=== PATIENT | female | born 2000 | race Caucasian/White ===

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

== ENCOUNTER 2020-01-12 00:11 | Outpatient (CLI) | payer OTHER, MEDICAID ==
[2020-01-12 00:39] LABS: APPEARANCE,URINE SLIGHTLY-CLOUDY; BILIRUBIN,URINE NEGATIVE (NEGATIVE); COLOR,URINE YELLOW; GLUCOSE, URINE NEGATIVE (NEGATIVE); KETONES,URINE NEGATIVE (NEGATIVE); LEUKOCYTE ESTERASE,URINE MODERATE (NEGATIVE); NITRITE,URINE NEGATIVE (NEGATIVE); PROTEIN,URINE 30 mg/dL (NEGATIVE); URINE SPECIFIC GRAVITY 1.023; UROBILINOGEN,URINE NEGATIVE mg/dL (<2.0)
[2020-01-12] MEDS ORDERED: HYDROXYZINE PAMOATE 50 MG CAPSULE PO ONE (00:50)
[2020-01-12 00:55] LABS: URINE AMPHETAMINES SCREEN NEGATIVE; URINE BARBITURATES SCREEN NEGATIVE; URINE BENZODIAZEPINES SCREEN NEGATIVE; URINE COCAINE SCREEN NEGATIVE; URINE MARIJUANA (THC) SCREEN NEGATIVE; URINE METHADONE SCREEN NEGATIVE; URINE PHENCYCLIDINE SCREEN NEGATIVE
[2020-01-12] MEDS ORDERED: HYDROXYZINE PAMOATE 50 MG CAPSULE ONE (01:02)
--- NOTE | 2020-01-12 01:57 | Non Stress Test Report ---
Non Stress Test Datetime Report Generated by CPN: 01/12/2020 01:57 DEMOGRAPHIC EGA NST: 34.4 INDICATION Indication for Study (NST) Other: labor check URINE RESULTS Urine Protein, NST: Positive Urine Ketones - NST: Negative Urine Glucose - NST: Negative Urine Blood - NST: Negative MONITORING Monitor Explained: Monitor Explained; Test Explained; Patient Verbalized Understanding Time on Monitor: 01/12/2020 00:27 Time off Monitor: 01/12/2020 01:11 NST Duration: 44 NST INTERVENTIONS NST Interventions: PO Hydration Physician Notified NST: [place] BABY A: [id number] BABY A Movement : Present Contraction Frequency : 2-4 FHR Baseline : 145 Accelerations : 15X15 Decelerations : None Variability : Moderate 6-25bpm NST Review: Meets Criteria for Reactive NST NST Review and Verified By : Tasha Mckenzie RN NST Results: Reactive NST REPORT Report Trigger: Send Report
== END 2020-01-12 01:39 | disposition home or self-care (01) ==
LOC: LC 00:11
PROVIDERS: ATTEND Obstetrics & Gynecology
DX: O47.03 False labor before 37 completed weeks of gestation, third trimester (principal); Z3A.34 34 weeks gestation of pregnancy
CPT/HCPCS: 59025; 80307; 81001

== ENCOUNTER 2020-02-02 22:17 | Emergency (ER) | payer OTHER, MEDICAID ==
[2020-02-02 22:25] VITALS: BP 122/69
[2020-02-02] MEDS ORDERED: NORMAL SALINE 1000 ML 1,000 ML IV ONE (22:37)
[2020-02-02] MEDS ORDERED: ONDANSETRON HCL INJ/PF 4 MG/2 ML SDV IV ONE (22:37)
--- NOTE | 2020-02-02 22:37 | ER Document Report ---
ED Medical Screen (RME) - General Chief Complaint: Nausea/Vomiting/Diarrhea Stated Complaint: VOMITTING 37 WKS PREG Time Seen by Provider: 02/02/20 22:28 Primary Care Provider: MIKY LIZAMA MD [Primary Care Provider] - Follow up as needed Mode of Arrival: Ambulatory Information source: Patient Notes: 19-year-old female presented to ED for hyperemesis gravidarum with diarrhea. She states she is having abdominal cramping that she has been having since 34 weeks. She states she was seen on Monday and was told she was 1 cm dilated and 75% effaced. She states she is having a vaginal mucousy discharge. She states she is also having diarrhea. She states she is vomited 4 times today and cannot keep fluids down. She [facility] to come to the emergency room. She is 37 weeks 5 days 1 para 0. She is alert oriented respirations regular nonlabored speaking in full sentences. I have greeted and performed a rapid initial assessment of this patient. A comprehensive ED assessment and evaluation of the patient, analysis of test results and completion of medical decision making process will be conducted by an additional ED providers. TRAVEL OUTSIDE OF THE [place] IN LAST 30 DAYS: No - Related Data Allergies/Adverse Reactions: metoclopramide [From Reglan] Allergy (Verified 08/29/19 19:42) Past Medical History - Social History Chew tobacco use (# tins/day): No Frequency of alcohol use: None Drug Abuse: None Pulmonary Medical History: Reports: Hx Asthma Musculoskeltal Medical History: Reports Hx Musculoskeletal Trauma Psychiatric Medical History: Denies: Hx Depression Traumatic Medical History: Reports: Hx Fractures - Middle finger right Past Surgical History: Reports: Hx Abdominal Surgery - Pyloric stenosis - Immunizations Immunizations up to date: Yes Hx Diphtheria, Pertussis, Tetanus Vaccination: Yes Physical Exam - Vital signs Vitals: Temp Pulse Resp BP Pulse Ox 98.7 F 72 13 122/69 100 02/02/20 22:24 02/02/20 22:24 02/02/20 22:24 02/02/20 22:24 02/02/20 22:24 Course - Vital Signs Vital signs: Temp Pulse Resp BP Pulse Ox 98.7 F 72 13 122/69 100 02/02/20 22:32 02/02/20 22:24 02/02/20 22:24 02/02/20 22:24 02/02/20 22:24 Doctor's Discharge - Discharge Referrals: MIKY LIZAMA MD [Primary Care Provider] - Follow up as needed
[2020-02-02 23:00] LABS: ABSOLUTE MONOCYTES (AUTO) 0.5 10^3/uL (0.1-1.4); ABSOLUTE NEUT (AUTO) 5.8 10^3/uL (1.7-8.2); BASOPHILS % (AUTO) 0.5 % (0-2); EOSINOPHILS % (AUTO) 0.5 % (0-6); HEMATOCRIT 34.2 % (36.0-47.0); MEAN CORPUSCULAR HEMOGLOBIN 30.1 pg (27.0-33.4); MEAN CORPUSCULAR VOLUME 86 fl (80-97); MONOCYTES % (AUTO) 6.3 % (3-13); PLATELET COUNT 280 10^3/uL (150-450); RED BLOOD COUNT 3.98 10^6/uL (3.72-5.28); RED CELL DISTRIBUTION WIDTH 12.7 % (11.5-14.0); SEGMENTED NEUTROPHILS % (AUTO) 68.7 % (42-78); TOTAL CELLS COUNTED % (AUTO) 100 %; WHITE BLOOD COUNT 8.5 10^3/uL (4.0-10.5)
[2020-02-02 23:14] LABS: ALBUMIN 4.1 g/dL (3.7-5.6); ALKALINE PHOSPHATASE 211 U/L (50-135); ANION GAP 8 (5-19); ASPARTATE AMINO TRANSFERASE 24 U/L (5-30); BILIRUBIN,TOTAL 0.5 mg/dL (0.2-1.3); BLOOD UREA NITROGEN 4 mg/dL (7-20); CALCIUM 9.4 mg/dL (8.4-10.2); CARBON DIOXIDE 26 mmol/L (22-30); CHLORIDE 100 mmol/L (98-107); GLUCOSE 99 mg/dL (75-110); POTASSIUM 3.5 mmol/L (3.6-5.0); TOTAL PROTEIN 7.1 g/dL (6.3-8.2)
[2020-02-02 23:19] LABS: APPEARANCE,URINE SLIGHTLY-CLOUDY; BILIRUBIN,URINE NEGATIVE (NEGATIVE); COLOR,URINE YELLOW; GLUCOSE, URINE NEGATIVE (NEGATIVE); KETONES,URINE NEGATIVE (NEGATIVE); LEUKOCYTE ESTERASE,URINE SMALL (NEGATIVE); NITRITE,URINE NEGATIVE (NEGATIVE); PROTEIN,URINE 30 mg/dL (NEGATIVE); URINE SPECIFIC GRAVITY 1.023
--- NOTE | 2020-02-02 23:19 | ER Document Report ---
Entered by MARGARET MIRANDA SCRIBE 02/02/20 [id number] Acting as scribe for:ISABEL CALLOWAY IV, MD ED GI/ - General Chief Complaint: Nausea/Vomiting/Diarrhea Stated Complaint: VOMITTING 37 WKS PREG Time Seen by Provider: 02/02/20 22:28 Primary Care Provider: MIKY LIZAMA MD [ACTIVE PROVISIONAL STAFF] - Follow up as needed Mode of Arrival: Ambulatory Information source: Patient Notes: This 19 year old female patient, , currently x37 weeks and 5 days gestation with hyperemesis gravidarum presents to the ED today with complaints of chace sea/vomiting/diarrhea for the past x2 days. Patient notes that she has been "constantly nauseous" throughout the , "like I'm on a boat." She reports that she has tried anti-nausea suppositories, oral dissolving tablets, and luis without resolve. She also reports abdominal cramping for the past x3 weeks. She states that she called the nurse's line at [facility] and was told to come to the ED for evaluation. She notes that her next [employer] appointment is on 02/06/2020. Denies vaginal bleeding or sick contacts. TRAVEL OUTSIDE OF THE [place] IN LAST 30 DAYS: No - Related Data Allergies/Adverse Reactions: diphenhydramine [From Benadryl] Allergy (Verified 02/02/20 23:00) metoclopramide [From Reglan] Allergy (Verified 08/29/19 19:42) Past Medical History - General Information source: Patient - Social History Smoking Status: Never Smoker Cigarette use (# per day): No Chew tobacco use (# tins/day): No Smoking Education Provided: No Frequency of alcohol use: None Drug Abuse: None Lives with: Family Family History: Reviewed & Not Pertinent Patient has suicidal ideation: No Patient has homicidal ideation: No Pulmonary Medical History: Reports: Hx Asthma Musculoskeletal Medical History: Reports Hx Musculoskeletal Trauma Traumatic Medical History: Reports: Hx Fractures - Middle finger right Past Surgical History: Reports: Hx Abdominal Surgery - Pyloric stenosis - Immunizations Immunizations up to date: Yes Hx Diphtheria, Pertussis, Tetanus Vaccination: Yes Review of Systems - Review of Systems Constitutional: No symptoms reported EENT: No symptoms reported Cardiovascular: No symptoms reported Respiratory: No symptoms reported Gastrointestinal: See HPI, Abdominal pain - cramping, Diarrhea, Nausea, Vomiting Genitourinary: No symptoms reported Female Genitourinary: See HPI, - 37 weeks and 5 days. denies: Vaginal bleeding Musculoskeletal: No symptoms reported Skin: No symptoms reported Hematologic/Lymphatic: No symptoms reported Neurological/Psychological: No symptoms reported -: Yes All other systems reviewed and negative Physical Exam - Vital signs Vitals: Temp Pulse Resp BP Pulse Ox 98.7 F 72 13 122/69 100 02/02/20 22:24 02/02/20 22:24 02/02/20 22:24 02/02/20 22:24 02/02/20 22:24 Interpretation: Normal - General General appearance: Alert In distress: None - HEENT Head: Normocephalic, Atraumatic Eyes: Normal Pupils: PERRL - Respiratory Respiratory status: No respiratory distress Chest status: Nontender Breath sounds: Normal Chest palpation: Normal - Cardiovascular Rhythm: Regular Heart sounds: Normal auscultation Murmur: No Friction rub: No Gallop: None auscultated - Abdominal Inspection: Gravid female, Other - Uterine size is appropriate for gestation Bowel sounds: Normal Tenderness: Nontender - Abdomen soft Organomegaly: No organomegaly - Back Back: Normal, Nontender - Extremities General upper extremity: Normal inspection General lower extremity: Normal inspection - Neurological Neuro grossly intact: Yes Orientation: AAOx4 - Psychological Associated symptoms: Normal affect, Normal mood - Skin Skin Temperature: Warm Skin Moisture: Dry Skin Color: Normal Course - Re-evaluation Re-evalutation: 02/03/20 00:01 Results of ED MSE discussed with patient. All questions were answered prior to discharge. Emergency signs and symptoms, reasons to return to the emergency department discussed with patient. - Vital Signs Vital signs: Temp Pulse Resp BP Pulse Ox 98.7 F 72 13 122/69 100 02/02/20 22:32 02/02/20 22:24 02/02/20 22:24 02/02/20 22:24 02/02/20 22:24 - Laboratory Result Diagrams: 02/02/20 22:45 02/02/20 22:45 Laboratory results interpreted by me: 02/02/20 02/02/20 02/02/20 22:45 22:45 22:45 Hct 34.2 L Sodium 133.9 L Potassium 3.5 L BUN 4 L Creatinine 0.46 L Alkaline Phosphatase 211 H Urine Protein 30 H Urine Urobilinogen 2.0 H Ur Leukocyte Esterase SMALL H Discharge - Discharge Clinical Impression: Hypokalemia Nausea and vomiting Qualifiers: Vomiting type: unspecified Vomiting Intractability: unspecified Qualified Code(s): R11.2 - Nausea with vomiting, unspecified Diarrhea Qualifiers: Diarrhea type: unspecified type Qualified Code(s): R19.7 - Diarrhea, un specified UTI (urinary tract infection) Qualifiers: Urinary tract infection type: site unspecified Hematuria presence: without hematuria Qualified Code(s): N39.0 - Urinary tract infection, site not specified Condition: Good Disposition: HOME, SELF-CARE Instructions: Urinary Tract Infection ([facility]) Additional Instructions: Return to the Emergency Department without delay if any worse. HOME CARE INSTRUCTIONS & INFORMATION: Thank you for choosing us for your medical needs. We hope you're satisfied with the care you received. After you leave, you must properly care for your problem and, at the same time, observe its progress. Any condition can change. Some illnesses can change rapidly over hours or days. If your condition worsens, return to the Emergency Department or see your physician promptly. ABOUT YOUR X-RAYS AND EKG'S: If you had an EKG or X-rays taken, they have been read by the Emergency Physician. The X-rays and EKG's will also be read by a Radiologist or Measurer within 24 hours. If discrepancies are noted, you will be notified by telephone. Please be certain the ED has a correct telephone number & address where you can be reached. Also, realize that some fractures or abnormalities do not show up on initial X-rays. If your symptoms continue, see your physician. ABOUT YOUR LABORATORY TEST: If you had laboratory tests, the results have been reviewed by the Emergency Physician. Some test results (for example cultures) may not be available for several days. You will be contacted if any test result shows you need additional treatment. Please be certain the ED has a correct telephone number and address where you can be reached. ABOUT YOUR MEDICATIONS: You will receive instructions on how to take your medicine on the prescription label you receive. Additional information may be provided by the Pharmacy. If you have questions afterwards, call the ED for clarification or further instructions. Some prescribed medications may cause drowsiness. Do not perform tasks such as driving a car or operating machinery without consulting your Pharmacist. If you feel you need a refill of pain medication, your condition will need re-evaluation. Please do not call for a refill of any medication. ABOUT YOUR SIGNATURE: Signature of this document acknowledges to followin. Understanding that you received emergency treatment and that you may be released before al medical problems are known or treated. Please be certain the ED has a correct phone number & address where you can be reached. 2. Acknowledgement that you will arrange for follow-up care as recommended. 3. Authorization for the Emergency Physician to provide information to your follow-up Physician in order to maximize your care. AT ANY TIME, IF YOUR SYMPTOMS CHANGE SIGNIFICANTLY OR WORSEN OR YOU DEVELOP NEW SYMPTOMS, RETURN TO THE EMERGENCY DEPARTMENT IMMEDIATELY FOR RE-EVALUATION. OUR GOAL IS TO PROVIDE EXCELLENT MEDICAL CARE! WE HOPE THAT WE HAVE MET YOUR EXPECTATIONS DURING YOUR EMERGENCY DEPARTMENT VISIT AND THAT YOU FEEL YOU HAVE RECEIVED EXCELLENT CARE! Hypokalemia You have an abnormally decreased level of serum potassium. Hypokalemia may cause weakness, fatigue, or heart rhythm abnormalities. Sometimes there are no symptoms at all. Usually, low serum potassium is due to taking diuretics (water pills). It can also be due to excessive vomiting or diarrhea. If no obvious cause is evident, further evaluation will be necessary. Treatment is usually oral potassium supplements. Take these exactly as prescribed. You may also want to select foods which are naturally high in potassium -- fruits (such as bananas, cantaloupe, grapes, oranges, prunes, tomatoes), fresh vegetables (potatoes, spinach, beans, peas), orange or tomato juice, tomato pasta sauce, milk, fish (halibut, tuna, salmon, molly) A follow-up blood test is usually performed to assure that the potassium is returning to normal. Call the physician if you suffer severe weakness, muscle twitching or cramping, palpitations (pounding or irregular heartbeat), or any other new or alarming symptoms. Prescriptions: Nitrofurantoin Monohyd/M-Cryst [Macrobid 100 mg Capsule] 100 mg PO BID 7 Days #14 cap Referrals: MIKY LIZAMA MD [ACTIVE PROVISIONAL STAFF] - 02/03/20 I personally performed the services described in the documentation, reviewed and edited the documentation which was dictated to the scribe in my presence, and it accurately records my words and actions.
[2020-02-03] MEDS ORDERED: NITROFURANTOIN MONOHYD/M-CRYST 100 MG CAPSULE PO ONE (00:05)
== END 2020-02-03 00:26 | disposition home or self-care (01) ==
LOC: ER 22:17
DX: O21.1 Hyperemesis gravidarum with metabolic disturbance (principal); O23.43 Unspecified infection of urinary tract in pregnancy, third trimester; R19.7 Diarrhea, unspecified; Z3A.37 37 weeks gestation of pregnancy
CPT/HCPCS: 36415; 85025; 80053; 81001; J2405; J7030; J8499; 96361; 96374; 99284

== ENCOUNTER 2020-02-03 11:46 | Outpatient (CLI) | payer OTHER, MEDICAID ==
[2020-02-03] MEDS ORDERED: PANTOPRAZOLE SODIUM 40 MG VIAL IV ONE (12:26)
[2020-02-03] MEDS ORDERED: ONDANSETRON HCL INJ/PF 4 MG/2 ML SDV IV ONE (12:27)
[2020-02-03] MEDS ORDERED: PROMETHAZINE HCL 25 MG SUPP.RECT PR ONE (12:27)
[2020-02-03] MEDS: DEXTROSE 5%-LACTATED RINGERS 1,000 ML IV PRN ×2 (12:43→13:32)
[2020-02-03] MEDS ORDERED: ONDANSETRON HCL INJ/PF 4 MG/2 ML SDV ONE (12:48)
[2020-02-03 13:27] LABS: ALKALINE PHOSPHATASE 171 U/L (50-135); ANION GAP 5 (5-19); ASPARTATE AMINO TRANSFERASE 19 U/L (5-30); BILIRUBIN,TOTAL 0.4 mg/dL (0.2-1.3); BLOOD UREA NITROGEN 2 mg/dL (7-20); CALCIUM 8.3 mg/dL (8.4-10.2); CARBON DIOXIDE 23 mmol/L (22-30); CHLORIDE 104 mmol/L (98-107); GLUCOSE 168 mg/dL (75-110); POTASSIUM 3.4 mmol/L (3.6-5.0); TOTAL PROTEIN 5.5 g/dL (6.3-8.2)
[2020-02-03 13:32] LABS: AMYLASE < 30 U/L (30-110)
[2020-02-03] MEDS ORDERED: ALBUTEROL SULFATE 0.042% NEB (1.25 MG/3 ML) AMPUL NEB ONE (14:20)
[2020-02-03] MEDS ORDERED: POTASSI CL 20 MEQ/50 ML RIDER 20 MEQ/50 ML RTUPB IV ONE (14:23)
[2020-02-03 14:36] LABS: URINE AMPHETAMINES SCREEN NEGATIVE; URINE BARBITURATES SCREEN NEGATIVE; URINE BENZODIAZEPINES SCREEN NEGATIVE; URINE COCAINE SCREEN NEGATIVE; URINE MARIJUANA (THC) SCREEN NEGATIVE; URINE METHADONE SCREEN NEGATIVE; URINE PHENCYCLIDINE SCREEN NEGATIVE
== END 2020-02-03 17:58 | disposition home or self-care (01) ==
LOC: LC 11:46
PROVIDERS: ATTEND Obstetrics & Gynecology
DX: O21.1 Hyperemesis gravidarum with metabolic disturbance (principal); E86.0 Dehydration; Z3A.37 37 weeks gestation of pregnancy
CPT/HCPCS: 36415; 82150; 83690; 84443; 80053; 80307; 59025; C9113; J2405; J3480

== ENCOUNTER 2020-02-10 04:43 | Outpatient (CLI) | payer OTHER, MEDICAID ==
--- NOTE | 2020-02-10 04:48 | Non Stress Test Report ---
Non Stress Test Datetime Report Generated by CPN: 02/10/2020 04:48 DEMOGRAPHIC EGA NST: 37.5 INDICATION Indication for Study (NST) Other: dehydration at 37.5 MONITORING Monitor Explained: Monitor Explained; Test Explained; Patient Verbalized Understanding Time on Monitor: 02/03/2020 15:30 Time off Monitor: 02/03/2020 15:59 NST Duration: 29 NST INTERVENTIONS NST Interventions: None Physician Notified NST: Dr Hudson BABY A: [id number] BABY A Movement : Present Contraction Frequency : x1 FHR Baseline : 130 Accelerations : 15X15 Decelerations : None Variability : Moderate 6-25bpm NST Review: Meets Criteria for Reactive NST NST Review and Verified By : LINDSAY JETER, RN NST Results: Reactive NST REPORT Report Trigger: Send Report
[2020-02-10 05:20] LABS: APPEARANCE,URINE SLIGHTLY-CLOUDY; BILIRUBIN,URINE NEGATIVE (NEGATIVE); COLOR,URINE YELLOW; GLUCOSE, URINE NEGATIVE (NEGATIVE); KETONES,URINE NEGATIVE (NEGATIVE); LEUKOCYTE ESTERASE,URINE LARGE (NEGATIVE); NITRITE,URINE NEGATIVE (NEGATIVE); PROTEIN,URINE 30 mg/dL (NEGATIVE); URINE SPECIFIC GRAVITY 1.013; UROBILINOGEN,URINE NEGATIVE mg/dL (<2.0)
[2020-02-10 05:35] LABS: URINE AMPHETAMINES SCREEN NEGATIVE; URINE BARBITURATES SCREEN NEGATIVE; URINE BENZODIAZEPINES SCREEN NEGATIVE; URINE COCAINE SCREEN NEGATIVE; URINE MARIJUANA (THC) SCREEN NEGATIVE; URINE METHADONE SCREEN NEGATIVE; URINE PHENCYCLIDINE SCREEN NEGATIVE
--- NOTE | 2020-02-10 05:49 | Non Stress Test Report ---
Non Stress Test Datetime Report Generated by CPN: 02/10/2020 05:49 DEMOGRAPHIC EGA NST: 38.5 INDICATION Indication for Study (NST) Other: lc MONITORING Monitor Explained: Monitor Explained; Test Explained; Patient Verbalized Understanding Time on Monitor: 02/10/2020 05:01 Time off Monitor: 02/10/2020 05:40 NST Duration: 39 NST INTERVENTIONS NST Interventions: Reposition Patient Physician Notified NST: Dr Mueller BABY A Movement : Present Contraction Frequency : irreg FHR Baseline : 130 Accelerations : 15X15 Decelerations : None Variability : Moderate 6-25bpm NST Review: Meets Criteria for Reactive NST NST Review and Verified By : Joselo, RN NST Results: Reactive NST REPORT Report Trigger: Send Report
== END 2020-02-10 05:51 | disposition home or self-care (01) ==
LOC: LC 04:43
PROVIDERS: ATTEND Obstetrics & Gynecology Gynecology
DX: O47.1 False labor at or after 37 completed weeks of gestation (principal); Z3A.38 38 weeks gestation of pregnancy
CPT/HCPCS: 59025; 80307; 81005; 84112

== ENCOUNTER 2020-02-10 19:40 | Inpatient (IN) | payer OTHER, MEDICAID ==
[2020-02-10] MEDS ORDERED: RINGERS SOLUTION,LACTATED 1,000 ML IV ONE (20:02)
[2020-02-10] MEDS ORDERED: RINGERS SOLUTION,LACTATED 1,000 ML IV PRN (20:02)
[2020-02-10 20:13] LABS: APPEARANCE,URINE TURBID; BILIRUBIN,URINE NEGATIVE (NEGATIVE); COLOR,URINE YELLOW; GLUCOSE, URINE NEGATIVE (NEGATIVE); KETONES,URINE 80 mg/dL (NEGATIVE); LEUKOCYTE ESTERASE,URINE MODERATE (NEGATIVE); NITRITE,URINE NEGATIVE (NEGATIVE); PROTEIN,URINE 100 mg/dL (NEGATIVE); URINE SPECIFIC GRAVITY 1.021; UROBILINOGEN,URINE NEGATIVE mg/dL (<2.0)
[2020-02-10] MEDS ORDERED: MISOPROSTOL 0.2 MG TABLET ONE (20:26)
[2020-02-10] MEDS ORDERED: OXYTOCIN 10 UNIT/ML VIAL ONE (20:26)
[2020-02-10] MEDS ORDERED: LIDOCAINE 1% INJ-PF (10 MG/ML) 30 ML SDV ONE (20:27)
[2020-02-10] MEDS ORDERED: OXYTOCIN/0.9 % SODIUM CHLORIDE 30 UNIT/500 ML RTUINJ ONE (20:27)
[2020-02-10 20:33] LABS: URINE AMPHETAMINES SCREEN NEGATIVE; URINE BARBITURATES SCREEN NEGATIVE; URINE BENZODIAZEPINES SCREEN NEGATIVE; URINE COCAINE SCREEN NEGATIVE; URINE MARIJUANA (THC) SCREEN NEGATIVE; URINE METHADONE SCREEN NEGATIVE; URINE PHENCYCLIDINE SCREEN NEGATIVE
[2020-02-10 20:47] LABS: ABSOLUTE MONOCYTES (AUTO) 0.5 10^3/uL (0.1-1.4); ABSOLUTE NEUT (AUTO) 12.2 10^3/uL (1.7-8.2); BASOPHILS % (AUTO) 0.1 % (0-2); HEMATOCRIT 31.2 % (36.0-47.0); HEMOGLOBIN 10.9 g/dL (12.0-15.5); LYMPHOCYTES % (AUTO) 7.2 % (13-45); MEAN CORPUSCULAR HEMOGLOBIN 29.3 pg (27.0-33.4); MEAN CORPUSCULAR HGB CONC 35.1 g/dL (32.0-36.0); MEAN CORPUSCULAR VOLUME 84 fl (80-97); PLATELET COUNT 266 10^3/uL (150-450); RED BLOOD COUNT 3.73 10^6/uL (3.72-5.28); RED CELL DISTRIBUTION WIDTH 13.3 % (11.5-14.0); SEGMENTED NEUTROPHILS % (AUTO) 88.7 % (42-78); TOTAL CELLS COUNTED % (AUTO) 100 %; WHITE BLOOD COUNT 13.7 10^3/uL (4.0-10.5)
[2020-02-10] MEDS ORDERED: NALBUPHINE HCL INJ 10 MG/1 ML AMPULE INJ ONE (23:40)
[2020-02-10] MEDS ORDERED: PROMETHAZINE HCL INJ 25 MG/1 ML VIAL IV ONE (23:40)
[2020-02-10] MEDS ORDERED: NALBUPHINE HCL INJ 10 MG/1 ML AMPULE ONE (23:43)
[2020-02-10] MEDS ORDERED: PROMETHAZINE HCL INJ 25 MG/1 ML VIAL ONE (23:43)
[2020-02-11] MEDS ORDERED: FENTANYL/BUPIVACAINE/NS/PF 300 MCG/150 ML RTUINJ EPI ONE (01:12)
[2020-02-11] MEDS ORDERED: EPHEDRINE SULFATE INJ 50 MG/1 ML AMPULE ONE (01:12)
[2020-02-11] MEDS ORDERED: BUPIVACAINE HCL 0.25 % INJ/PF (2.5 MG/1 ML) 30 ML VIAL ONE (01:13)
[2020-02-11] MEDS ORDERED: BENZOCAINE/MENTHOL AEROSOL SPRAY 56 ML TOP PRN (04:20)
[2020-02-11] MEDS ORDERED: MAGNESIUM HYDROXIDE SUSP 30 ML UDCUP PO PRN (04:20)
[2020-02-11] MEDS ORDERED: ACETAMINOPHEN 650 MG SUPP.RECT PR PRN (04:20)
[2020-02-11] MEDS ORDERED: MISOPROSTOL 0.2 MG TABLET PR PRN (04:20)
[2020-02-11] MEDS ORDERED: NA PHOS,M-B/NA PHOS,DI-BA (ADULT) 133 ML ENEMA PR PRN (04:20)
[2020-02-11] MEDS ORDERED: ZOLPIDEM TARTRATE 5 MG TABLET PO PRN (04:20)
[2020-02-11] MEDS ORDERED: DIBUCAINE 1% OINTMENT 28 GM TP PRN (04:20)
[2020-02-11] MEDS ORDERED: MEASLES,MUMPS&RUBELLA VACC/PF 0.5 ML VIAL SUBCUT PRN (04:20)
[2020-02-11] MEDS ORDERED: PSEUDOEPHEDRINE HCL 30 MG TABLET PO PRN (04:20)
[2020-02-11] MEDS ORDERED: DIPHENHYDRAMINE HCL 25 MG CAPSULE PO PRN (04:20)
[2020-02-11] MEDS ORDERED: PROMETHAZINE HCL INJ 25 MG/1 ML VIAL IV PRN (04:20)
[2020-02-11] MEDS ORDERED: DIPH/PERTUSS(ACELL)/TETANUS VAC/PF 0.5 ML SYR (>=10YO) IM PRN (04:20)
[2020-02-11] MEDS ORDERED: ACETAMINOPHEN WITH CODEINE #3 TABLET PO PRN ×2 (04:20)
[2020-02-11] MEDS ORDERED: PROMETHAZINE HCL 25 MG SUPP.RECT PR PRN (04:20)
[2020-02-11] MEDS ORDERED: PROMETHAZINE HCL 25 MG TABLET PO PRN (04:20)
[2020-02-11] MEDS ORDERED: GLYCERIN/WITCH HAZEL LEAF 1 EACH MED..WIPE TP PRN (04:20)
[2020-02-11] MEDS ORDERED: OXYTOCIN/0.9 % SODIUM CHLORIDE 30 UNIT/500 ML RTUINJ IV PRN (04:20)
--- NOTE | 2020-02-11 04:30 | Admission Physical ---
Datetime Report Generated by CPN: 02/11/2020 04:29 CURRENT ADMISSION Chief Complaint: Uterine Contractions Chief Complaint Other: Having regular contractions, becoming more painful today. Admit Impression : Term, Intrauterine ; Active Labor; Intact Membranes Admit Plan: Admit to Unit; Initiate Labor Protocol ALLERGIES Medication Allergies: Yes Medication Allergies: metoclopramide (02/03/2020); diphenhydramine (02/03/2020) Latex: No Latex Allergies OBSTETRICAL HISTORY EDC: 02/19/2020 00:00 : 1 Para: 0 Term: 0 : 0 SAB: 0 IAB: 0 Ectopic: 0 Livin (Annotations: Data stored by N on behalf of user) Cesareans: 0 VBACs: 0 Multiple Births: 0 Gestational Diabetes: No Rh Sensitization: No Incompetent Cervix: No SASCHA: No Infertility: No ART Treatment: No Uterine Anomaly: No IUGR: No Hx Previous C/S: No Macrosomia: No Hx Loss/Stillborn: No PIH: No Hx : No Placenta Previa/Abruption: No Depression/PP Depression: No PTL/PROM: No Post Hemorrhage: No Current Procedures: None; Ultrasound; NST SEE RECORDS Alcohol: No Marijuana : No Cocaine: No Other Illicit Drugs: No Cigarettes: Never Smoker. 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 Heart Disease: No Hosp/Surgery: Yes Autoimmune Disorder: No Anesthetic Complications: No Kidney Disease: No Abnormal Pap Smear: No Neuro/Epilepsy: No Psychiatric Disorders: No Other Medical Diseases: No Hepatitis/Liver Disease: No Significant Family History: No Varicosities/Phlebitis: No Trauma/Violence : No Thyroid Dysfunction: No Medical History Comments: pyloric stenosis as an INFECTIOUS HISTORY Gonorrhea: No Genital Herpes: No Chlamydia: No Tuberculosis: No Syphilis: No Hepatitis: No HIV/AIDS Exposure: No Rash or Viral Illness: No HPV: No PHYSICAL EXAM General: Normal HEENT: Normal Neurologic: Normal Thyroid: Normal Heart: Normal Lungs: Normal Breast: Normal Back: Normal Abdomen: Normal Genitourinary Exam: Normal Extremities: Normal DTRs: Normal Pelvic Type: Adequate Vital Signs: Reviewed VAGINAL EXAM Dilatation: 5 Effacement: 90 Station: -2 Contraction Comments: Regular MEMBRANES Pooling: Negative FETUS A EGA: 38.5 Monitoring: External US FHR- Baseline: 135 Variability: Moderate 6-25bpm Accelerations: 15X15 Decelerations: None FHR Category: Category I Presentation: Vertex Admit Comment: 18 yo G1 at 38.5 wks EGA in active labor. Cervical change from 5 cm to 6 cm in triage -Admit to LDR: active labor -NPO except icechips and LR bolus 1,ooo cc now, then 125 cc/hr -CEFM and toco -GBS negative -RH positive -Desires epidural - ANticpate PLANS FOR LABOR AND DELIVERY Labor and Delivery: None Pain Management: Medications; Epidural Feeding Preference: Formula Benefit of Breast Feed Discussed: Yes Circumcision: N/A INFORMED CONSENT Informed Consent Obtained: Vaginal Delivery; Section Delivery; Vacuum/Forceps Assist; Risks, Benefits and Alternatives Discussed Signature: with User ID: Ana Rosa : with User ID: Ana Rosa
--- NOTE | 2020-02-11 05:06 | Delivery Summary ---
Del Sum A-C Datetime Report Generated by CPN: 02/11/2020 05:06 DELIVERY PERSONNEL DELIVERY PERSONNEL: [id number] Delivery Doctor:: Ashley Hudson MD Labor and Delivery Nurse:: Nury Hancock RNhull sorter Nurse:: GARFIELD Reaves Stogy Maker/REAL ESTATE COORDINATOR: Noelle Green, ST MATERNAL INFORMATION Delivery Anesthesia: Epidural Medications After Delivery: Pitocin Bolus-Please Comment; Cytotec 1000mcg Per Rectum/Vagina Estimated Blood Loss (ml): 300 Maternal Complications: None Provider Comments: Called to patients room complete with urge to push. Delivered viable female from vertex presention after a period of pushing. Loose nuchal x 1 noted at delivery but not able to reduce as the shoulder and rest of the baby was delivering. Infant vigorous at delivery. Cord clamping delayed for 30 seconds. Cord then doubly clamped and cut. skin to skin. Some uterine atony and increased bleeding. Bimanual massage and clearing of clots. Placed 1,000mcg cytotec [place]. Fundus remained firm. Mother and baby stable . LABOR SUMMARY EDC: 02/19/2020 00:00 No. Babies in Womb: 1 Attempted: No Labor Anesthesia: Epidural LABOR INFORMATION Reason for Induction: Not Applicable Onset of Labor: 02/09/2020 04:00 Complete Dilatation: 02/11/2020 02:08 Oxytocin: N/A Group B Beta Strep: neg Antibiotics # of Doses: 0 Antibiotics Time of Last Dose: 0 Name of Antibiotic Given: 0 Steroids Given: None Reason Steroids Not Administered: Not Applicable MEMBRANES Membranes Rupture Method: Spontaneous Rupture of Membranes: 02/11/2020 01:05 Length of Rupture (hr): 2.98 Amniotic Fluid Color: Clear Amniotic Fluid Amount: Small Amniotic Fluid Odor: Normal STAGES OF LABOR Stage 1 hr: 46 Stage 1 min: 8 Stage 2 hr: 1 Stage 2 min: 56 Stage 3 hr: 0 Stage 3 min: 4 Total Time in Labor hr: 48 Total Time in Labor min: 8 VAGINAL DELIVERY Episiotomy: None Laceration #1: Vaginal Laceration Extension #1: First Degree Other Laceration: 1st degree labial bilateral Laceration Repair: Yes Laceration Repair Note: 3-0 chromic used to repair in interrupted fashion Sponge Count Correct: Yes Sharps Count Correct: Yes CSECTION DELIVERY Primary Indication: N/A Secondary Indication: N/A CSection Incidence: N/A Labor: N/A Elective: N/A CSection Incision: N/A BABY A INFORMATION Delivery Date/Time: 02/11/2020 04:04 Method of Delivery: Vaginal Nurse Controlled Delivery: No Born in Route : No : N/A Forceps: N/A Vacuum Extraction: N/A Shoulder Dystocia : No PRESENTATION/POSITION BABY A Presentation: Cephalic Cephalic Presentation: Vertex Vertex Position: Right Occipital Anterior Breech Presentation: N/A PLACENTA INFORMATION BABY A Placenta Delivery Time : 02/11/2020 04:08 Placenta Method of Delivery: Spontaneous Placenta Status: Retained SCORES BABY A Heart Rate 1 min: >100 bpm Resp Effort 1 min: Good Cry Reflex Irritability 1 min: Cough or Sneeze or Pulls Away Muscle Tone 1 min: Some Flexion of Extremities Color 1 min: Body Fontanelle, Extremities Blue SCORE 1 MIN: 8 Heart Rate 5 min: >100 bpm Resp Effort 5 min: Good Cry Reflex Irritability 5 min: Cough or Sneeze or Pulls Away Muscle Tone 5 min: Some Flexion of Extremities Color 5 min: Body Fontanelle, Extremities Blue SCORE 5 MIN: 8 INFORMATION BABY A Gestational Age at Delivery: 38.6 Gestational Status: Early Term- 37- 38.6 Weeks Outcome : Liveborn Condition : Stable Infant Sex: Female IDENTIFICATION BABY A Infant Verification Date/Time: 02/11/2020 04:29 ID Band Number: [id number] Mother's Name Verified: Yes Infant RN Verifying : K Juan R, RN/ D Tatyana, RNC WEIGHT/LENGTH BABY A Infant Birthweight (gm): 2869 Infant Weight (lb): 6 Infant Weight (oz): 5 Infant Length (in): 19.50 Infant Length (cm): 49.53 CORD INFORMATION BABY A No. Cord Vessels: 3 Nuchal Cord : Around Neck x1, Loose Cord Blood Taken: Yes-For Storage (Mom's Blood type +) Suction: None ASSESSMENT BABY A Infant Complications: None Physical Findings at Delivery: Molding of the Head Respirations: Appears Normal; Grunting Skin to Skin: Yes Skin to Skin Time (min): 5 Cryptological Technician/ALS Called : No Care By: D Bellavance RN Transferred To: Remains with Mother BABY B INFORMATION : N/A SIGNATURES Signature: with User ID: Ana Rosa : with User ID: Ana Rosa
[2020-02-11] MEDS ORDERED: AMPICILLIN SOD INJ 2 GM VIAL IV SCH (06:00)
[2020-02-11] MEDS ORDERED: GENTAMICIN SULFATE INJ 80 MG/2 ML VIAL IV SCH (06:00)
[2020-02-11] MEDS ORDERED: IBUPROFEN 800 MG TABLET ONE (06:05)
[2020-02-11] MEDS: IBUPROFEN 800 MG TABLET PO SCH ×3 (06:13→21:32)
[2020-02-11] MEDS ORDERED: AMPICILLIN SOD INJ 2 GM VIAL ONE (06:15)
[2020-02-11] MEDS: FERROUS SULFATE 325 MG TABLET PO SCH ×2 (09:54→18:23)
[2020-02-11] MEDS: DOCUSATE SODIUM 100 MG CAPSULE PO SCH ×2 (09:54→18:23)
[2020-02-11] MEDS: PRENATAL VITAMIN W DHA CAPSULE PO SCH (09:54)
[2020-02-11] MEDS: SENNOSIDES/DOCUSATE 8.6-50 MG 1 EACH TABLET PO SCH (09:54)
[2020-02-11] MEDS: FAMOTIDINE 20 MG TABLET PO SCH ×2 (09:54→21:32)
[2020-02-11] MEDS: AMPICILLIN SODIUM 2 GM in NORMAL SALINE 100 ML IV SCH ×2 (12:15→18:23)
[2020-02-11] MEDS: GENTAMICIN SULFATE IV SCH (16:10)
[2020-02-11] MEDS: WATER IV SCH (16:10)
[2020-02-11] MEDS: DEXTROSE 5% IV SCH (16:10)
[2020-02-12] MEDS: AMPICILLIN SODIUM 2 GM in NORMAL SALINE 100 ML IV SCH ×2
[2020-02-12] MEDS: GENTAMICIN SULFATE IV SCH (00:32)
[2020-02-12] MEDS: DEXTROSE 5% IV SCH (00:32)
[2020-02-12] MEDS: WATER IV SCH (00:32)
[2020-02-12] MEDS: IBUPROFEN 800 MG TABLET PO SCH ×3 (05:18→21:14)
[2020-02-12 06:26] LABS: HEMATOCRIT 25.7 % (36.0-47.0); HEMOGLOBIN 8.8 g/dL (12.0-15.5); MEAN CORPUSCULAR HEMOGLOBIN 29.1 pg (27.0-33.4); MEAN CORPUSCULAR HGB CONC 34.1 g/dL (32.0-36.0); MEAN CORPUSCULAR VOLUME 85 fl (80-97); PLATELET COUNT 202 10^3/uL (150-450); RED BLOOD COUNT 3.01 10^6/uL (3.72-5.28); WHITE BLOOD COUNT 9.4 10^3/uL (4.0-10.5)
[2020-02-12] MEDS: FAMOTIDINE 20 MG TABLET PO SCH ×2 (09:05→21:14)
[2020-02-12] MEDS: PRENATAL VITAMIN W DHA CAPSULE PO SCH (09:05)
[2020-02-12] MEDS: DOCUSATE SODIUM 100 MG CAPSULE PO SCH ×2 (09:05→17:27)
[2020-02-12] MEDS: SENNOSIDES/DOCUSATE 8.6-50 MG 1 EACH TABLET PO SCH (09:06)
[2020-02-12] MEDS: FERROUS SULFATE 325 MG TABLET PO SCH ×2 (09:06→17:26)
--- NOTE | 2020-02-12 11:09 | PDOC PROGRESS REPORT ---
Subjective-OB Progress Note for:: 02/12/20 Subjective: 19yo G1 now P1 s/p ppd 1 . Voiding and ambulating without difficulty, reports pain well controlled with medication, no concerns today Physical Exam (OB) Vital Signs: Temp Pulse Resp BP Pulse Ox 97.4 F 80 16 113/74 100 02/12/20 07:24 02/12/20 07:24 02/12/20 07:24 02/12/20 07:24 02/12/20 07:24 Intake & Output 02/11/20 02/12/20 02/13/20 06:59 06:59 06:59 Intake Total 1003.9390 Balance 1003.9390 Weight 52.526 kg - General General Appearance: Appears well In distress: None - PIH/Pre-Eclampsia DTR's: 1 + Clonus: Negative Headache: Absent Epigastric Pain: No Visual Changes: No - Episiotomy/Laceration Site Condition: Well Approximated - Lochia Lochia Amount: Scant < 10 ml Lochia Color: Rubra/Red - Abdomen Description: Soft, Round Hernia Present: No Fundal Description: Firm, Midline Fundal Height: u/u - u/2 - Respiratory Respiratory Status: No respiratory distress - Extremities Upper extremity: Normal inspection Lower extremities: Normal inspection - Neurological Cognition: Normal Orientation: AAOx4 - Psychological Associated symptoms: Normal affect, Normal mood Objective-Diagnostic Laboratory: 02/12/20 06:03 02/12/20 06:03 WBC 9.4 RBC 3.01 L Hgb 8.8 L D Hct 25.7 L MCV 85 MCH 29.1 MCHC 34.1 RDW 13.0 Plt Count 202 Assessment and Plan(PN) - Assessment and Plan (1) Obstetric vaginal laceration Qualifiers: Perineal laceration presence: unspecified whether perineal laceration present Qualified Code(s): O71.4 - Obstetric high vaginal laceration alone Is this a current diagnosis for this admission?: Yes Plan: continue to monitor for s/s of infection (2) Obstetric labial laceration, delivered, current hospitalization Is this a current diagnosis for this admission?: Yes Plan: continue to monitor for s/s of infection (3) Acute blood loss anemia Is this a current diagnosis for this admission?: Yes Plan: increase dietary iron and FeSO4 BID, IV iron to be given (4) Anemia complicating , third trimester Is this a current diagnosis for this admission?: Yes Plan: increase dietary iron and FeSO4 BID (5) Delivery normal Is this a current diagnosis for this admission?: Yes Plan: routine pp care - Time Spent with Patient Time with patient: Less than 15 minutes Medications reviewed and adjusted accordingly: Yes - Disposition Anticipated Discharge: Home Within: within 24 hours
[2020-02-12] MEDS ORDERED: IRON SUCROSE COMPLEX INJ/PF 100 MG/5 ML SDV IV ONE (12:00)
[2020-02-13] MEDS: IBUPROFEN 800 MG TABLET PO SCH (06:53)
[2020-02-13] MEDS: FERROUS SULFATE 325 MG TABLET PO SCH (10:16)
[2020-02-13] MEDS: PRENATAL VITAMIN W DHA CAPSULE PO SCH (10:17)
[2020-02-13] MEDS: DOCUSATE SODIUM 100 MG CAPSULE PO SCH (10:17)
[2020-02-13] MEDS: FAMOTIDINE 20 MG TABLET PO SCH (10:18)
[2020-02-13] MEDS: SENNOSIDES/DOCUSATE 8.6-50 MG 1 EACH TABLET PO SCH (10:19)
--- NOTE | 2020-02-13 11:04 | PDOC DISCHARGE SUMMARY ---
Impression - Admit/DC Date/PCP Admission Date/Primary Care Provider: 02/10/20 20:07 STEVEN RAMIREZ NP Discharge Date: 02/13/20 - Discharge Diagnosis (1) Obstetric vaginal laceration Is this a current diagnosis for this admission?: Yes (2) Obstetric labial laceration, delivered, current hospitalization Is this a current diagnosis for this admission?: Yes (3) Acute blood loss anemia Is this a current diagnosis for this admission?: Yes (4) Anemia complicating , third trimester Is this a current diagnosis for this admission?: Yes (5) Delivery normal Is this a current diagnosis for this admission?: Yes - Assessment Summary: 29yo s/p delivery day ppd 2. Stable and ready for discharge, no concerns today, understands warning s/s - Additional Information Resuscitation Status: Full Code Discharge Diet: As Tolerated, Regular Discharge Activity: Activity As Tolerated, Balance Activity w/Rest, Pelvic Rest, No tub bath, Walk Frequently Referrals: STEVEN RAMIREZ NP [Primary Care Provider] - Prescriptions: Ibuprofen [Motrin 800 mg Tablet] 800 mg PO Q8HP PRN #30 tablet PRN Reason: Abdominal Cramping Docusate Sodium [Colace 100 mg Capsule] 100 mg PO BID #60 capsule Ferrous Sulfate [Feosol 325 mg Tablet] 325 mg PO BID #60 tablet Home Medications: Vits96/Iron Fum/Folic [ Tablet] 1 tab PO DAILY 01/12/20 Budesonide [Pulmicort] 1 puff IN PRN PRN 02/10/20 Docusate Sodium [Colace 100 mg Capsule] 100 mg PO BID #60 capsule 02/12/20 Ferrous Sulfate [Feosol 325 mg Tablet] 325 mg PO BID #60 tablet 02/12/20 Ibuprofen [Motrin 800 mg Tablet] 800 mg PO Q8HP PRN #30 tablet 02/12/20 Results Laboratory Results: WBC 9.4 10^3/uL (4.0-10.5) 02/12/20 06:03 RBC 3.01 10^6/uL (3.72-5.28) L 02/12/20 06:03 Hgb 8.8 g/dL (12.0-15.5) L D 02/12/20 06:03 Hct 25.7 % (36.0-47.0) L 02/12/20 06:03 MCV 85 fl (80-97) 02/12/20 06:03 MCH 29.1 pg (27.0-33.4) 02/12/20 06:03 MCHC 34.1 g/dL (32.0-36.0) 02/12/20 06:03 RDW 13.0 % (11.5-14.0) 02/12/20 06:03 Plt Count 202 10^3/uL (150-450) 02/12/20 06:03 Lymph % (Auto) 7.2 % (13-45) L 02/10/20 20:15 [place] % (Auto) 4.0 % (3-13) 02/10/20 20:15 Eos % (Auto) 0.0 % (0-6) 02/10/20 20:15 Baso % (Auto) 0.1 % (0-2) 02/10/20 20:15 Absolute Neuts (auto) 12.2 10^3/uL (1.7-8.2) H 02/10/20 20:15 Absolute Lymphs (auto) 1.0 10^3/uL (0.5-4.7) 02/10/20 20:15 Absolute Monos (auto) 0.5 10^3/uL (0.1-1.4) 02/10/20 20:15 Absolute Eos (auto) 0.0 10^3/uL (0.0-0.6) 02/10/20 20:15 Absolute Basos (auto) 0.0 10^3/uL (0.0-0.2) 02/10/20 20:15 Seg Neutrophils % 88.7 % (42-78) H 02/10/20 20:15 Urine Color YELLOW 02/10/20 19:50 Urine Appearance TURBID 02/10/20 19:50 Urine pH 6.0 (5.0-9.0) 02/10/20 19:50 Ur Specific [place] 1.021 02/10/20 19:50 Urine Protein 100 mg/dL (NEGATIVE) H 02/10/20 19:50 Urine Glucose (UA) NEGATIVE mg/dL (NEGATIVE) 02/10/20 19:50 Urine Ketones 80 mg/dL (NEGATIVE) H 02/10/20 19:50 Urine Blood LARGE (NEGATIVE) H 02/10/20 19:50 Urine Nitrite NEGATIVE (NEGATIVE) 02/10/20 19:50 Urine Bilirubin NEGATIVE (NEGATIVE) 02/10/20 19:50 Urine Urobilinogen NEGATIVE mg/dL (<2.0) 02/10/20 19:50 Ur Leukocyte Esterase MODERATE (NEGATIVE) H 02/10/20 19:50 Urine Ascorbic Acid NEGATIVE (NEGATIVE) 02/10/20 19:50 Urine Opiates Screen NEGATIVE 02/10/20 19:50 Urine Methadone Screen NEGATIVE 02/10/20 19:50 Ur Barbiturates Screen NEGATIVE 02/10/20 19:50 Ur Phencyclidine Scrn NEGATIVE 02/10/20 19:50 Ur Amphetamines Screen NEGATIVE 02/10/20 19:50 U Benzodiazepines Scrn NEGATIVE 02/10/20 19:50 Urine Cocaine Screen NEGATIVE 02/10/20 19:50 U Marijuana (THC) Screen NEGATIVE 02/10/20 19:50 RPR NONREACTIVE (NONREACTIVE) 02/10/20 20:15 Blood Type A POSITIVE 02/10/20 20:15 Antibody Screen NEGATIVE 02/10/20 20:15
[2020-02-13 11:18] VITALS: BP 123/76
== END 2020-02-13 12:03 | disposition home or self-care (01) | DRG 806 ==
LOC: LC 19:40 → LR 20:07 → 2S 02-11 06:35
PROVIDERS: ADMIT Obstetrics & Gynecology; ATTEND Obstetrics & Gynecology
PROC: 10E0XZZ Delivery of Products of Conception, External Approach (ICD-10-PCS; principal; 2020-02-11)
PROC: 0HQ9XZZ Repair Perineum Skin, External Approach (ICD-10-PCS; 2020-02-11)
DX: O69.81X0 Labor and delivery complicated by cord around neck, without compression, not applicable or unspecified (principal); D62 Acute posthemorrhagic anemia; Z37.0 Single live birth; O62.2 Other uterine inertia; O70.0 First degree perineal laceration during delivery; Z3A.38 38 weeks gestation of pregnancy; O99.02 Anemia complicating childbirth
CPT/HCPCS: 1967; 36415; 80307; 81005; 85025; 85027; 86592; 86850; 86900; 86901; 94760; J0290; J1580; J1756; J2300; J2550; J2590; J3010; J3490; J7050; J7060